=== PATIENT | female | born 1975 | race African-American/Black ===

== ENCOUNTER 2025-01-04 10:20 | Day surgery (SDC) | payer OTHER ==
[2024-12-27 15:57] VITALS: BMI 32.5
[2025-01-04 10:47] VITALS: RESP 18
[2025-01-04] MEDS ORDERED: PROPOFOL 20 ML ONE (11:38)
[2025-01-04 12:49] VITALS: TEMP 97.9
[2025-01-04 12:52] VITALS: BP 112/76; PULSE 79
== END 2025-01-04 13:30 | disposition home or self-care (01) ==
LOC: FASU-ENDO 10:20
PROVIDERS: ATTEND Internal Medicine Gastroenterology
PROC: 0DBP8ZX Excision of Rectum, Via Natural or Artificial Opening Endoscopic, Diagnostic (ICD-10-PCS; 2025-01-04)
PROC: 0DBB8ZX Excision of Ileum, Via Natural or Artificial Opening Endoscopic, Diagnostic (ICD-10-PCS; 2025-01-04)
PROC: 0DBH8ZX Excision of Cecum, Via Natural or Artificial Opening Endoscopic, Diagnostic (ICD-10-PCS; principal; 2025-01-04 11:37)
DX: Z12.11 Encounter for screening for malignant neoplasm of colon (principal); D12.0 Benign neoplasm of cecum; D12.8 Benign neoplasm of rectum
CPT/HCPCS: 88305-TC